=== PATIENT | male | born 1960 | race Caucasian/White ===

== ENCOUNTER 2022-07-02 17:04 | Emergency (ER) | payer MEDICAID ==
[~2022-07-02] VITALS: Ht 182.9 cm; Wt 75.0 kg
[2022-07-02 17:25] VITALS: BP 129/101
[2022-07-02] MEDS ORDERED: bacitracin 15gm ointment TP ONE (18:35)
== END 2022-07-02 19:23 | disposition home or self-care (01) ==
LOC: ER 17:04
DX: S60.921D Unspecified superficial injury of right hand, subsequent encounter (principal); X58.XXXD Exposure to other specified factors, subsequent encounter
CPT/HCPCS: 73100; 99283

== ENCOUNTER 2022-09-04 07:01 | Emergency (ER) | payer MEDICAID ==
[~2022-09-04] VITALS: Ht 185.4 cm; Wt 77.3 kg
[2022-09-04 07:06] VITALS: BP 130/93
== END 2022-09-04 09:14 | disposition left against medical advice (07) ==
LOC: ER 07:01
DX: R21 Rash and other nonspecific skin eruption (principal); Z53.21 Procedure and treatment not carried out due to patient leaving prior to being seen by health care provider